=== PATIENT | female | born 1980 | race Caucasian/White ===

== ENCOUNTER 2017-12-03 23:36 | Emergency (ER) | payer MEDICAID, SELFPAY ==
[~2017-12-03] VITALS: Ht 165.1 cm; Wt 108.7 kg
[2017-12-03 23:39] VITALS: BP 133/82
== END 2017-12-04 00:24 | disposition home or self-care (01) ==
LOC: ED 23:59
DX: J45.909 Unspecified asthma, uncomplicated (principal); Z76.0 Encounter for issue of repeat prescription; Z00.00 Encounter for general adult medical examination without abnormal findings
CPT/HCPCS: 99283

== ENCOUNTER 2018-12-29 11:17 | Emergency (ER) | payer MEDICAID ==
[~2018-12-29] VITALS: Ht 167.6 cm; Wt 106.5 kg
[2018-12-29 12:22] VITALS: BP 120/69
== END 2018-12-29 13:15 | disposition home or self-care (01) ==
LOC: ED 12:53
DX: K59.00 Constipation, unspecified (principal); R10.30 Lower abdominal pain, unspecified; D50.8 Other iron deficiency anemias; J45.909 Unspecified asthma, uncomplicated; F17.200 Nicotine dependence, unspecified, uncomplicated
CPT/HCPCS: 36415; 74018; 80053; 81003; 82607; 83540; 83550; 83690; 84703; 85025; 99284